=== PATIENT | male | born 1980 | race Caucasian/White ===

== ENCOUNTER 2019-01-23 23:21 | Emergency (ER) | payer MEDICAID ==
[~2019-01-23] VITALS: Ht 182.9 cm; Wt 72.0 kg
[2019-01-23] MEDS ORDERED: LORazepam 1 MG tablet PO ONE (23:50)
[2019-01-24 00:10] LABS: BASOPHILS # (AUTO) 0.1 X10'3 (0-0.2); BASOPHILS % (AUTO) 0.6 % (0-1); EOSINOPHILS # (AUTO) 0.1 X10'3 (0-0.9); EOSINOPHILS % (AUTO) 0.9 % (0-6); HEMATOCRIT 44.2 % (42.0-52.0); HEMOGLOBIN 15.2 g/dl (14.0-17.9); LYMPHOCYTES # (AUTO) 2.7 X10'3 (1.1-4.8); LYMPHOCYTES % (AUTO) 25.3 % (21-51); MEAN CORPUSCULAR HEMOGLOBIN 30.4 PG (27.0-31.0); MEAN CORPUSCULAR HGB CONC 34.4 g/dL (33.0-36.5); MEAN CORPUSCULAR VOLUME 88.4 FL (78-98); MEAN PLATELET VOLUME 7.2 FL (7.4-10.4); MONOCYTES % (AUTO) 9.8 % (2-12); NEUTROPHILS # (AUTO) 6.7 X10'3 (1.8-7.7); NEUTROPHILS % (AUTO) 63.4 % (42-75); PLATELET COUNT 399 X10'3 (140-440); RED CELL DISTRIBUTION WIDTH 13.1 % (11.5-14.5); WHITE BLOOD COUNT 10.5 X10'3 (4.5-11.0)
--- NOTE | 2019-01-24 00:10 | NUR ---
Assessments were done by relief RN Jennifer Alfaro when this RN was on lunch break. Physical assessments were completed by this RN, assessments complited on this record were reviewed by this RN.
[2019-01-24 00:25] LABS: ALANINE AMINOTRANSFERASE 40 U/L (12-78); ALBUMIN 4.3 G/DL (3.4-5.0); ALBUMIN/GLOBULIN RATIO 1.2 (1.1-1.5); ALKALINE PHOSPHATASE 104 IU/L (46-116); ANION GAP 13 (8-16); ASPARTATE AMINO TRANSFERASE 16 U/L (10-37); BILIRUBIN,TOTAL 0.6 MG/DL (0.1-1.0); BLOOD UREA NITROGEN 24 MG/DL (7-18); BUN/CREATININE RATIO 23.1 (5.4-32.0); CALCIUM 9.1 MG/DL (8.5-10.1); CHLORIDE 100 MMOL/L (99-107); CREATININE 1.04 MG/DL (0.60-1.10); GLUCOSE 115 MG/DL (70-104); POTASSIUM 3.5 MMOL/L (3.5-5.1); SODIUM 138 MMOL/L (135-145); TOTAL CARBON DIOXIDE 25.1 MMOL/L (24-32); eGFR 80 ML/MIN
[2019-01-24 00:33] LABS: ACETAMINOPHEN < 2.0 UG/ML (10-30)
[2019-01-24 00:34] LABS: ETHANOL < 0.010 GM/DL (0.0-0.010)
--- NOTE | 2019-01-24 00:51 | NUR ---
Patient ambulated in from triage. He is alert and oriented X2, person and place. Patient does not know the year, situation is questionable. Patient states he is from [facility]. He denies an mental healt or drug history. Patient denies voices, or H/I. He states he is suicidal, his plan pills, knife, or rope. When asked is he has been institurionalized in a mental facility in [place] patient states no. When this travel writer asked patient If I would have to call all the hospitals he stated no, don't do that. "I just can't remember the name of the hospital." Patient states that "Randee the misty newsome told me I was evil. Ivett lives behind my house in [place]. Randee is a female owl who can turn into silver. Patient now admits that he has taken Seroquil in the past. Patient is encouraged to drink water to effect a urine for a tox screen. Addendum: 01/24/19 at 0539 by ISRAEL This note reflected this writers jennifer and assessment that was done on 01/23 at 2330 when he arrived from triage.
--- NOTE | 2019-01-24 01:17 | NUR ---
Patient is starting to relax some following Ativan, he is still dellusions to a large degree. Seroquil will be administered.
[2019-01-24] MEDS ORDERED: quetiapine 100mg tablet PO SCH (01:29)
[2019-01-24] MEDS ORDERED: quetiapine 100mg tablet PO ONE (01:29)
--- NOTE | 2019-01-24 02:30 | NUR ---
The patient is up multiple times to the bathroom to void, he does not do so and states he cannot. While in and out of the bathroom he needs to be re-directed. The patient exhibits disorganized thought, paranoia, and confusion. The patient is drinking water that is provided to him in an attempt to generate urine.
--- NOTE | 2019-01-24 04:00 | NUR ---
Patient sleeping quietly. He occasioualy sleep talks, one leg is flexed while he sleeps.
--- NOTE | 2019-01-24 04:11 | NUR ---
Packet sent to [facility]. Unable to confirm receipt of packet as [id number] hours. UA still required. Pt was unable to provide specimen prior to sending packet out.
--- NOTE | 2019-01-24 05:16 | NUR ---
This patient is still sleeping. The patient has not voided as of yet, no tox screen has been done. The ER MD has been advised. No urgency per the MD.
--- NOTE | 2019-01-24 05:40 | NUR ---
Patient initially denied drug use. When a meth pipe was found upon doing patients belongings inventory the patient admitted to using this drug.
--- NOTE | 2019-01-24 06:30 | NUR ---
Asleep upon change of shift observation. Color and breathing WNL. In line of sight of staff at all times.
--- NOTE | 2019-01-24 08:30 | NUR ---
Patient awakened and served breakfast tray. Patient barely arousable. Did not awaken to eat.
--- NOTE | 2019-01-24 11:45 | NUR ---
Continues to remain soundly asleep. Breakfast tray untouched at his bedside.
[2019-01-24 12:25] LABS: CLARITY,URINE SLIGHTLY CLOUDY (Clear); COLOR,URINE YELLOW (Yellow); GLUCOSE, URINE NEGATIVE (Neg); KETONES,URINE TRACE mg/dl (Neg); LEUKOCYTE ESTERASE ,URINE NEGATIVE (Neg); NITRITES, URINE NEGATIVE (Neg); OCCULT BLOOD,URINE NEGATIVE (Neg); PH,URINE 5.5 (4.8-8.0); PROTEIN,URINE NEGATIVE (Neg); UROBILINOGEN,URINE 0.2 E.U/dL (0.2-1.0)
[2019-01-24 12:27] LABS: UA COLLECTION TYPE CLN CATCH MIDSTREAM
[2019-01-24 12:30] LABS: URINE AMPHETAMINE SCREEN POSITIVE (Neg); URINE BARBITUATE SCREEN NEGATIVE (Neg); URINE BENZODIAZEPINES SCREEN NEGATIVE (Neg); URINE CANNABINOID SCREEN POSITIVE (Neg); URINE COCAINE SCREEN NEGATIVE (Neg); URINE METHADONE SCREEN NEGATIVE (Neg); URINE OPIATE SCREEN NEGATIVE (Neg); URINE PHENCYCLIDINE SCREEN NEGATIVE (Neg)
--- NOTE | 2019-01-24 12:30 | NUR ---
Roselia from [facility] at bedside to evaluate patient. Patient met criteria for 5150 status and placed on a hold.
[2019-01-24 12:33] LABS: BACTERIA,URINE NONE SEEN /HPF (Neg); MUCUS STRANDS MODERATE /LPF (Neg); RBC,URINE NONE SEEN /HPF (0-2); SQUAMOUS EPITHELIAL CELL,UR FEW /LPF (FEW)
[2019-01-24] MEDS ORDERED: haloperidol 5mg tablet PO ONE (13:20)
[2019-01-24] MEDS ORDERED: diphenhydrAMINE 25mg capsule PO ONE (13:20)
[2019-01-24] MEDS ORDERED: LORazepam 1 MG tablet PO ONE (13:20)
--- NOTE | 2019-01-24 13:29 | NUR ---
Patient presents as actively psychotic. Unable to particiapte in a mental status exam. States he does not know where he is. Spends extended periods of time staring at the floor or his sheets or the wall. Startles if he is interupted. Appears to be responding to internal stimuli, specifically auditory hallucinations. Dr. Laboy consulted. Orders given for Haldol 10 mg./Ativan 2 mg./Benadryl 50 mg. PO. Medications administered as ordered. Patient was hesitant to take meds initially, claiming "Why are you trying to tranquilize me?" Then took them without event.
--- NOTE | 2019-01-24 17:38 | NUR ---
Went to sleep one hour after medication administration. Remains asleep at this time. Color and breathing WNL. In line of sight of staff at all times.
--- NOTE | 2019-01-24 19:00 | NUR ---
Continues sleeping soundly with blanket over head. Respirations are slow and steady.
--- NOTE | 2019-01-24 21:00 | NUR ---
Patient stirred and turned over to his right side and went back to sleep.
--- NOTE | 2019-01-24 23:00 | NUR ---
Patient has been sleeping on his left side with blanket covering half of face. Respirations are slow and steady.
--- NOTE | 2019-01-25 01:00 | NUR ---
Patient now sleeping on his back with only quarter of face covered by a blanket.
--- NOTE | 2019-01-25 03:00 | NUR ---
Patient continues to sleep. Now on his right side.
--- NOTE | 2019-01-25 05:00 | NUR ---
Patient continues sleeping peacefully.
--- NOTE | 2019-01-25 05:15 | NUR ---
Patient actully awoke for a few minutes and allowed for staff to take oral temp=98.4
[2019-01-25 05:49] VITALS: BP 117/60
--- NOTE | 2019-01-25 12:07 | NUR ---
pt accepted at [facility]. pt leaving around 1330
--- NOTE | 2019-01-25 12:36 | NUR ---
pt accepted at [facility] corn picker time is [id number]
== END 2019-01-25 13:49 ==
LOC: ER 23:22
DX: R45.851 Suicidal ideations (principal); F41.9 Anxiety disorder, unspecified; Z59.0 Homelessness
CPT/HCPCS: 36415; 80053; 80305; 80320; 80329; 81001; 84443; 85025; 87088; 99285; Q0163